=== PATIENT | male | born 1990 | race African-American/Black ===

== ENCOUNTER 2022-08-02 07:49 | Emergency (ER) | payer OTHER ==
[2022-08-02] MEDS ORDERED: diphenhydrAMINE 50 MG/ML VIAL ONE (08:27)
[2022-08-02] MEDS ORDERED: Metoclopramide HCl 10 MG/2 ML VIAL ONE (08:27)
[2022-08-02] MEDS ORDERED: Ketorolac Tromethamine 30 MG/ML VIAL ONE (08:44)
== END 2022-08-02 09:37 | disposition home or self-care (01) ==
LOC: CSHERS 07:49
DX: G43.909 Migraine, unspecified, not intractable, without status migrainosus (principal)
CPT/HCPCS: 94760; 96374; 96375; J1200; J1885; J2765